=== PATIENT | female | born 1990 | race Caucasian/White ===

== ENCOUNTER 2024-01-06 11:35 | Inpatient (IN) | payer MEDICAID, OTHER ==
[~2024-01-06] VITALS: Ht 167.6 cm; Wt 97.8 kg
[2024-01-06 12:30] LABS: Basophils # (auto) 0 10 ^3/uL (0-0.2); Basophils % (auto) 0.2 % (0.0-2.0); Eosinophils # (auto) 0 10 ^3/uL (0-0.8); Eosinophils % (auto) 0.1 % (0.0-7.0); Hematocrit 33.8 % (36.0-46.0); Hemoglobin 11.1 g/dL (12.2-16.2); Lymphocytes # (auto) 0.8 10 ^3/uL (0.4-5.4); Lymphocytes % (auto) 6.6 % (10.0-50.0); Mean Corpuscular Hemoglobin 29.2 pg (28.0-32.0); Mean Corpuscular Hgb Conc. 32.9 g/dL (32.0-36.0); Mean Corpuscular Volume 88.8 fL (80.0-100.0); Monocytes # (auto) 0.4 10 ^3/uL (0-1.3); Monocytes % (auto) 3.4 % (0.0-12.0); Neutrophils # (auto) 10.2 10 ^3/uL (1.6-8.6); Neutrophils % (auto) 89.7 % (37.0-80.0); Red Blood Cells 3.81 10^6/uL (4.0-5.20); Red Cell Distribution Width 13.5 % (11.8-14.3); White Blood Cell 11.4 10^3/uL (4.4-10.8)
[2024-01-06 12:46] LABS: Alanine Aminotransferase 16 U/L (7-40); Albumin 4.3 g/dL (3.2-4.8); Alkaline Phosphatase 66 U/L (46-116); Anion Gap 8 (5-15); Aspartate Aminotransferase 11 U/L (13-40); BUN/Creatinine Ratio 17.5 (10.0-20.0); Blood Urea Nitrogen 11 mg/dL (9-23); Calcium 8.9 mg/dL (8.7-10.4); Carbon Dioxide 22 mmol/L (20-30); Chloride 109 mmol/L (98-107); Glucose 111 mg/dL (74-106); Lipase 27 U/L (12-53); Magnesium 2.1 mg/dL (1.6-2.6); Potassium 3.7 mmol/L (3.5-5.1); Sodium 139 mmol/L (136-145)
[2024-01-06 12:47] LABS: Bilirubin, Total 0.3 mg/dL (0.2-1.0)
[2024-01-06 12:57] LABS: Urine Amorphous Crystal FEW /hpf (None Seen); Urine Bacteria FEW /hpf (None Seen); Urine Blood Negative /uL (Negative); Urine Clarity Hazy (Clear); Urine Color Yellow (Yellow); Urine Mucus FEW (None Seen); Urine Protein, UAD TRACE (Negative); Urine Urobilinogen Normal (Negative); Urine WBC 3 /hpf (0 - 5); Urine pH 5.5 (5.0-9.0)
[2024-01-06] MEDS: SODIUM CHLORIDE 0.9% 1,000 ML IV ONE (13:41)
[2024-01-06] MEDS: ONDANSETRON HCL 4 MG/2 ML VIAL IV ONE (13:41)
[2024-01-06 13:45] LABS: INR 0.97 (0.9-1.15); Partial Thromboplastin Time 26.4 SEC (24.5-34.5); Prothrombin Time 10.3 sec (9.3-11.8)
[2024-01-06 18:19] LABS: INR 0.97 (0.9-1.15); Prothrombin Time 10.3 sec (9.3-11.8)
[2024-01-06] MEDS: PANTOPRAZOLE 40 MG/10 ML VIAL INJ IV ONE (19:01)
[2024-01-06] MEDS: KETOROLAC TROMETH 30 MG/ML 1ML VIAL IV ONE (19:01)
[2024-01-06] MEDS: cefTRIAXone 1GM/50ML D5W 50 ML IV ONE (19:08)
[2024-01-06] MEDS: SODIUM CHLORIDE 0.9% 1,000 ML IV SCH (19:08)
[2024-01-06 19:28] VITALS: BP 121/64; PULSE 67; RESP 20; TEMP 98.1; O2SAT 100
[2024-01-06 20:00] VITALS: PULSE 91; RESP 20; O2SAT 99
[2024-01-06 21:00] VITALS: BP 115/74; PULSE 67; RESP 18; TEMP 98.7; O2SAT 97
[2024-01-06] MEDS: MORPHINE SULFATE INJ 2 MG/ml SYRG IV PRN (21:25)
[2024-01-06] MEDS: ONDANSETRON HCL 4 MG/2 ML VIAL IV PRN (22:00)
[2024-01-06] MEDS ORDERED: BUSP15TA60 PO (22:47)
[2024-01-06] MEDS ORDERED: BUPR150T8 PO (22:49)
[2024-01-07] VITALS (7 sets, daily range): BP systolic 12–123; BP diastolic 51–70; PULSE 59–90; RESP 14–18; TEMP 98.3–98.6; O2SAT 95–99
[2024-01-07 05:32] LABS: Basophils # (auto) 0 10 ^3/uL (0-0.2); Basophils % (auto) 0.3 % (0.0-2.0); Eosinophils # (auto) 0.1 10 ^3/uL (0-0.8); Eosinophils % (auto) 0.6 % (0.0-7.0); Hemoglobin 10.1 g/dL (12.2-16.2); Lymphocytes % (auto) 22.2 % (10.0-50.0); Mean Corpuscular Hemoglobin 29.3 pg (28.0-32.0); Mean Corpuscular Hgb Conc. 33.8 g/dL (32.0-36.0); Mean Corpuscular Volume 86.9 fL (80.0-100.0); Monocytes # (auto) 0.9 10 ^3/uL (0-1.3); Monocytes % (auto) 9.7 % (0.0-12.0); Neutrophils % (auto) 67.2 % (37.0-80.0); Red Blood Cells 3.45 10^6/uL (4.0-5.20); Red Cell Distribution Width 13.4 % (11.8-14.3); White Blood Cell 8.9 10^3/uL (4.4-10.8)
[2024-01-07 05:52] LABS: Alanine Aminotransferase 13 U/L (7-40); Albumin 3.4 g/dL (3.2-4.8); Alkaline Phosphatase 55 U/L (46-116); Anion Gap 5 (5-15); Aspartate Aminotransferase < 8 U/L (13-40); BUN/Creatinine Ratio 17.9 (10.0-20.0); Bilirubin, Total 0.4 mg/dL (0.2-1.0); Blood Urea Nitrogen 10 mg/dL (9-23); Calcium 8.1 mg/dL (8.7-10.4); Carbon Dioxide 25 mmol/L (20-30); Chloride 111 mmol/L (98-107); Glucose 98 mg/dL (74-106); Potassium 3.4 mmol/L (3.5-5.1); Sodium 141 mmol/L (136-145); Total Protein 5.5 g/dL (5.7-8.2)
[2024-01-07] MEDS: PANTOPRAZOLE 40 MG/10 ML VIAL INJ IV SCH (10:18)
[2024-01-07] MEDS: cefTRIAXone 1GM/50ML D5W 50 ML IV SCH (10:21)
[2024-01-07] MEDS: busPIRone HCL 10 MG TAB PO SCH (22:00)
[2024-01-07] MEDS: POTASSIUM CHL 20 Meq TABLET PO ONE (22:34)
[2024-01-07] MEDS: PANTOPRAZOLE 40 MG TAB PO ONE (22:38)
[2024-01-08] VITALS (9 sets, daily range): BP systolic 100–129; BP diastolic 63–82; PULSE 58–76; RESP 16–18; TEMP 97.7–98.6; O2SAT 94–99
[2024-01-08 06:03] LABS: Anion Gap 5 (5-15); Carbon Dioxide 26 mmol/L (20-30); Chloride 111 mmol/L (98-107); Sodium 142 mmol/L (136-145)
[2024-01-08 06:04] LABS: Calcium 8.1 mg/dL (8.7-10.4)
[2024-01-08] MEDS: PANTOPRAZOLE 40 MG TAB PO SCH (06:07)
[2024-01-08 06:09] LABS: BUN/Creatinine Ratio 16.7 (10.0-20.0); Blood Urea Nitrogen 10 mg/dL (9-23); Glucose 91 mg/dL (74-106)
[2024-01-08] MEDS: buPROPion HCL 75 MG TAB PO SCH (06:11)
[2024-01-08] MEDS ORDERED: LACTATED RINGER'S 1,000 ML IV SCH (09:00)
[2024-01-08] MEDS ORDERED: ceFAZolin 1GM/50ML 50 ML IV ONE (09:00)
[2024-01-08] MEDS ORDERED: NEOSTIGMINE 1 MG/ML INJ (10mg/10ML VIAL) ONE (13:45)
[2024-01-08] MEDS ORDERED: MEPERIDINE HCL (50 MG/ML) 1 ML VIAL ONE ×2 (13:45→15:53)
[2024-01-08] MEDS ORDERED: ONDANSETRON HCL 4 MG/2 ML VIAL ONE (13:45)
[2024-01-08] MEDS ORDERED: ROCURONIUM 10MG/ML 10ML VIAL IV ONE (13:45)
[2024-01-08] MEDS ORDERED: KETAMINE 50mg/ML 10ml Vial 10 ML ONE (13:45)
[2024-01-08] MEDS ORDERED: SODIUM CHLORIDE LOCK 10 ML ONE (13:45)
[2024-01-08] MEDS ORDERED: GLYCOPYRROLATE 0.2 MG/ML 1ML VIAL ONE (13:45)
[2024-01-08] MEDS ORDERED: MIDAZOLAM HCL 2MG/2ML 2ml VIAL (1mg/ml) ONE (13:45)
[2024-01-08] MEDS ORDERED: fentaNYL CITRATE 100 MCG/2 ML VL ONE (13:45)
[2024-01-08] MEDS ORDERED: LIDOCAINE 1% INJ PF 5ML AMP ONE (13:45)
[2024-01-08] MEDS ORDERED: LIDOCAINE HCL 2% TOP JELLY 5ML TOP ONE (13:48)
[2024-01-08] MEDS: ceFAZolin 2 GM/D5W50ml 50 ML IV ONE (14:13)
[2024-01-08] MEDS: LIDOCAINE W/ EPINEPHRINE 1% 20ML VIAL ONE (15:41)
[2024-01-08] MEDS ORDERED: SUCCINYLCHOLINE CHLORIDE 20 MG/ML 10ML VIAL IV ONE (15:59)
[2024-01-08] MEDS ORDERED: MORPHINE SULFATE INJ 2 MG/ml SYRG IV PRN (16:00)
[2024-01-08] MEDS ORDERED: HYDROmorphone HCL 2 MG/ML VL/or syr IV PRN ×2 (16:00)
[2024-01-08] MEDS ORDERED: fentaNYL CITRATE 100 MCG/2 ML VL IV PRN (16:00)
[2024-01-08] MEDS ORDERED: METOCLOPRAMIDE HCL 5MG/ml INJ 2ml VIAL IV ONE (16:00)
[2024-01-08] MEDS ORDERED: IBUP-1455 PO (16:01)
[2024-01-08] MEDS ORDERED: HYDR-4902 PO (16:01)
[2024-01-08] MEDS ORDERED: CONJ.6252 PO (16:01)
[2024-01-08] MEDS ORDERED: MIDAZOLAM HCL 2MG/2ML 2ml VIAL (1mg/ml) IV ONE (16:15)
[2024-01-08] MEDS: MIDAZOLAM HCL 2MG/2ML 2ml VIAL (1mg/ml) ONE (16:22)
[2024-01-08] MEDS: MORPHINE SULFATE INJ 2 MG/ml SYRG IV PRN (18:32)
[2024-01-09 01:17] VITALS: BP 120/69; PULSE 68; RESP 18; TEMP 98.3; O2SAT 96
[2024-01-09 05:35] VITALS: BP 117/76; PULSE 62; RESP 18; TEMP 98.5; O2SAT 95
[2024-01-09 07:30] VITALS: PULSE 70; RESP 16; O2SAT 98
[2024-01-09 09:05] LABS: Basophils # (auto) 0 10 ^3/uL (0-0.2); Basophils % (auto) 0.4 % (0.0-2.0); Eosinophils # (auto) 0.1 10 ^3/uL (0-0.8); Eosinophils % (auto) 0.6 % (0.0-7.0); Hemoglobin 10.4 g/dL (12.2-16.2); Lymphocytes # (auto) 1.4 10 ^3/uL (0.4-5.4); Lymphocytes % (auto) 16.7 % (10.0-50.0); Mean Corpuscular Hemoglobin 29.3 pg (28.0-32.0); Mean Corpuscular Hgb Conc. 33.5 g/dL (32.0-36.0); Mean Corpuscular Volume 87.5 fL (80.0-100.0); Monocytes # (auto) 0.7 10 ^3/uL (0-1.3); Neutrophils # (auto) 6.2 10 ^3/uL (1.6-8.6); Neutrophils % (auto) 74.3 % (37.0-80.0); Red Blood Cells 3.54 10^6/uL (4.0-5.20); Red Cell Distribution Width 13.6 % (11.8-14.3); White Blood Cell 8.4 10^3/uL (4.4-10.8)
[2024-01-09 09:07] VITALS: BP 124/75; PULSE 70; RESP 20; TEMP 98.7; O2SAT 99
[2024-01-09 10:53] VITALS: TEMP 37.1
[2024-01-09 12:10] VITALS: BP 117/77; PULSE 66; RESP 18; TEMP 98.6; O2SAT 94
[2024-01-09] MEDS ORDERED: HYDR-4902 PO (14:34)
[2024-01-09] MEDS ORDERED: IBUP-1455 PO (14:34)
[2024-01-09] MEDS ORDERED: CONJ.6252 PO (14:34)
== END 2024-01-09 16:00 | disposition home or self-care (01) | DRG 513 ==
LOC: ER 11:35 → OVERFLOW 16:51 → WEST WING 17:58
PROVIDERS: ADMIT Internal Medicine; ATTEND Internal Medicine
PROC: 0UT04ZZ Resection of Right Ovary, Percutaneous Endoscopic Approach (ICD-10-PCS; 2024-01-08)
PROC: 0UT54ZZ Resection of Right Fallopian Tube, Percutaneous Endoscopic Approach (ICD-10-PCS; principal; 2024-01-08 14:13)
DX: D27.0 Benign neoplasm of right ovary (principal); Z68.34 Body mass index [BMI] 34.0-34.9, adult; D72.829 Elevated white blood cell count, unspecified; E66.01 Morbid (severe) obesity due to excess calories; E87.6 Hypokalemia; F41.9 Anxiety disorder, unspecified; F31.9 Bipolar disorder, unspecified; K21.9 Gastro-esophageal reflux disease without esophagitis; N83.511 Torsion of right ovary and ovarian pedicle; Z98.51 Tubal ligation status
CPT/HCPCS: 36415; 71045; 74176; 76856; 80048; 80053; 81001; 83690; 83735; 84702; 85025; 85610; 85730; 86850; 86900; 86901; 87040; 87081; G0378; J0330; J1885; J2250; J2405; J2470